=== PATIENT | male | born 1960 | race Caucasian/White ===

== ENCOUNTER 2022-12-11 08:45 | Outpatient (CLI) | payer BC ==
[2022-12-11] MEDS ORDERED: Magnevist 469MG/ML 20 ML VIAL ONE (18:28)
== END 2022-12-11 08:46 | disposition home or self-care (01) ==
LOC: CSHMRI 08:45
PROVIDERS: ATTEND Physician Assistant Medical
DX: K86.1 Other chronic pancreatitis (principal)
CPT/HCPCS: 74183; 82565; A9579